=== PATIENT | male | born 1985 | race Caucasian/White ===

== ENCOUNTER 2021-05-11 15:12 | Emergency (ER) | payer MEDICAID ==
[~2021-05-11] VITALS: Ht 172.7 cm; Wt 81.6 kg
[2021-05-11 15:26] VITALS: BP 134/83
--- NOTE | 2021-05-11 15:26 | NUR ---
LACERATION/AVULSION,TIP OF 3RD DIGIT, R HAND, S/P GLF WHILE WALKING ON THE SIDEWALK.
[2021-05-11] MEDS ORDERED: TDAP [DIPH/PERTUSSIS/TET] 0.5 ML VIAL IM ONE ×2 (16:00→16:27)
[2021-05-11] MEDS ORDERED: LIDOCAINE /MPF 1% VIAL 5 ML VIAL ONE (16:09)
[2021-05-11] MEDS ORDERED: CEPH500C2 PO (17:03)
[2021-05-11] MEDS ORDERED: IBUP-1953 PO (17:03)
[2021-05-11] MEDS ORDERED: NEOM28.43 TP (17:04)
--- NOTE | 2021-05-11 17:19 | NUR ---
Ricco zee in [facility] - 05/11/21 at 1720 by IVY Patient discharged to home in stable condition. Written and verbal after care instructions given. Patient verbalizes understanding of instruction.
--- NOTE | 2021-05-11 17:21 | NUR ---
Patient discharged to home in stable condition. Written and verbal after care instructions given. Patient verbalizes understanding of instruction.
== END 2021-05-11 17:28 | disposition home or self-care (01) ==
LOC: ER 15:25
DX: S61.212A Laceration without foreign body of right middle finger without damage to nail, initial encounter (principal); Z79.1 Long term (current) use of non-steroidal anti-inflammatories (NSAID); Z79.899 Other long term (current) drug therapy; W18.30XA Fall on same level, unspecified, initial encounter; Y93.01 Activity, walking, marching and hiking; Y92.410 Unspecified street and highway as the place of occurrence of the external cause; Y99.8 Other external cause status
CPT/HCPCS: 73140; 90471; 90715; 99283; A6403; J3490

== ENCOUNTER 2021-05-13 11:12 | Emergency (ER) | payer MEDICAID ==
[~2021-05-13] VITALS: Ht 172.7 cm; Wt 81.6 kg
[~2021-05-13 11:12] MED LIST: CEPH500C2 PO; IBUP-1953 PO; NEOM28.43 TP
--- NOTE | 2021-05-13 11:18 | NUR ---
BIB SELF FOR WOUND CHECK. SUTURE WAS DONE 2 DAYS AGO
--- NOTE | 2021-05-13 11:20 | NUR ---
AT BEDSIDE FOR EVAL.
[2021-05-13 11:35] VITALS: BP 138/91
--- NOTE | 2021-05-13 11:35 | NUR ---
Patient discharged to home in stable condition. Written and verbal after care instructions given. Patient verbalizes understanding of instruction.
== END 2021-05-13 11:41 | disposition home or self-care (01) ==
LOC: ER 11:13
DX: S61.213D Laceration without foreign body of left middle finger without damage to nail, subsequent encounter (principal); X58.XXXD Exposure to other specified factors, subsequent encounter